=== PATIENT | male | born 1965 | race Caucasian/White ===

== ENCOUNTER 2016-04-12 09:58 | Emergency (ER) | payer OTHER ==
[~2016-04-12] VITALS: Ht 180.3 cm; Wt 70.5 kg
[2016-04-12 10:02] VITALS: BP 154/96; PULSE 81; RESP 20; O2SAT 98
--- NOTE | 2016-04-12 10:14 | ED.REPORT ---
HPI-Dental/Mouth Prob Date of Service Apr 12, 2016 ED Provider: Malachi George MD Pt is a 51 y/o male presenting to the ED due to worsening dental pain onset 2 days ago. The pt broke his tooth while he was in assisted and now c/o front lower dental pain. He c/o asssociated gum swelling around the associated tooth. He denies fever, chills, trouble breathing or swallowing. He has a dentist at [facility] but came here today for pain medications. Nursing Notes Stated Complaint: TOOTH PAIN Chief Complaint: Dental Nursing Notes Reviewed: Yes Allergies: Coded Allergies: Penicillins (Verified Allergy, Intermediate, MOTHER [place], 12/07/15) Scheduled Penicillin V Potassium (Penicillin V Potassium) 500 Mg Tablet 500 MG PO QID Scheduled PRN Ibuprofen (Ibuprofen) 600 Mg Tablet 600 MG PO QID PRN PRN For Pain General Time Seen by MD: 10:08 Chief Complaint Tooth chipped, Tooth pain Hx Obtained From: Patient Arrived By: Walk-in Onset Occurred: 2 days ago Symptom Duration: Since onset Quality: Painful Severity: Current: Moderate Severity: Maximum: Moderate Past Medical History Past Medical History ADHD Hepatitus C Reports: Asthma Past Surgical History Remote Inguinal Hernia Repair Family History non-contributory Smoking History Current Every Day Smoker Social History Drug abuse Meth and Heroin Alcohol Use: 1-3 per day Drug Use: Cocaine, IV drugs, Meth, Other Other Social History: Good social support, Local resident Occupation staying at the [employer] house Ambulatory Status Independent Review of Systems Constitutional: Denies: Chills, Fever Ears / Nose / Throat: Reports: Toothache, Denies: Throat swelling, Tongue swelling Complete sys rev & neg: except as marked. Physical Exam Initial Vital Signs Vital Signs (First) Date Time Temp Pulse Resp B/P Pulse Ox O2 Delivery O2 Flow Rate FiO2 04/12/16 10:02 36.3 81 20 154/96 98 Room Air Initial VS: Reviewed, Vital signs normal Head / Eyes: Atraumatic, Normocephalic, PERRL Respiratory: Breath sounds normal, Clear to auscultation, No respiratory distress Cardiovascular: Regular rate & rhythm, Heart sounds normal, Intact distal pulses Abdomen / GI: Soft, No distention Skin: Warm, Dry, No cyanosis Neurologic: Alert, Oriented, Nonfocal Psychiatric: Mood/affect normal, Behavior normal, Normal thought content ENT: Atraumatic, Airway patent, Mucous membranes moist, Pharynx NL, No peritonsillar abscess, No pooling of secretions, No trismus Fracture of tooth number 24. Surrounding swelling and mild erythema. No purulent discharge or evidence of dental abcess. No swelling of face, jaw, lips, or tongue. Neck: Atraumatic, Supple, No meningismus, Full range of motion, No adenopathy General/Constitutional: Awake, Alert, No acute distress, Cooperative, Not toxic appearing Appearance / Presentation: Positive: Uncomfortable Re-Eval/Medical Decision Med Decision/Clinical Course In summary, the patient is a 51-year-old male who presents with dental pain. Dental examination notable as above for fractured tooth. There is some mild surrounding erythema though no obvious abscess amenable to drainage. Considered other possible causes of dental pain including periapical abscess, gingivitis, Mathew's angina, sinusitis, and molar impaction but these are unlikely based on the history and exam. Discussed with the patient the low cost clinic resources available and she will go directly to [facility] on discharge. Also reviewed precautions for return to the ED and the importance of f/u with a dentist, which he agreed to do. She received 1 tablet [place] and Toradol for pain. Prescribed 7 days of penicillin and he will take ibuprofen/ apply ice packs. Re-Evaluation/Progress : Time of Eval: 10:19 Re-Evaluation/Progress Note: Pt rechecked. Informed pt of plan for treatment. Pt understands and agrees with plan for treatment. F/U and RTER warnings given. All questions addressed. Counseled Regarding: Diagnosis, Need for follow-up, When/why to return to ED Discharge & Departure Primary Impression: Tooth fracture Encounter type: initial encounter Fracture type: closed Qualified Code: S02.5XXA - Fracture of tooth (traumatic), initial encounter for closed fracture Additional Impression: Pain, dental Disposition: Home Discharge Condition All VS Reviewed: Yes Condition: Stable Patient Instructions: Acute dental trauma (ED) Additional Instructions: Thank you for seeking care at emergency room. It is difficult for us to make definitive diagnoses in the ED but we believe that you are experiencing a dental fracture. Our primary goal today in the ED was to evaluate you for any life-threatening conditions. Your evaluation was reassuring. You will be discharged with a prescription for Penicillin and Ibuprofen. Take these as directed. Get to a dentist as soon as possible. You should follow-up with your primary doctor in the next week. You should return to the ED immediately if you develop fevers, vomiting, trouble breathing or swallowing, facial or tongue swelling, or any other concerning signs or symptoms. Thank you for letting us partake in your care today. Referrals: Ish Manzano MD (PCP) Scribe Attestation Portions of this note were transcribed by Sheldon Rodas. I, Dr. George personally performed the history, physical exam and medical decision-making; I reviewed and confirmed the accuracy of the information in the transcribed note. Signed by Annemarie Christiansen, 04/12/16 - 1030 copies to: Ish Manzano MD, Beck O MD Apr 12, 2016 10:14 SHELDON RODAS Apr 12, 2016 10:21
[2016-04-12] MEDS ORDERED: PENI500T PO (10:19)
[2016-04-12] MEDS ORDERED: IBUP-1827 PO (10:19)
[2016-04-12] MEDS ORDERED: HYDROcodone-APAP 7.5-325 mg Tablet PO ONE (10:20)
[2016-04-12] MEDS ORDERED: CLIN150C2 PO (10:42)
== END 2016-04-12 10:47 | disposition home or self-care (01) ==
LOC: SED 09:58
DX: S02.5XXA Fracture of tooth (traumatic), initial encounter for closed fracture (principal); X58.XXXA Exposure to other specified factors, initial encounter; Y93.9 Activity, unspecified; Y92.89 Other specified places as the place of occurrence of the external cause; Y99.9 Unspecified external cause status; J45.909 Unspecified asthma, uncomplicated; F17.200 Nicotine dependence, unspecified, uncomplicated; Z88.0 Allergy status to penicillin; Z86.19 Personal history of other infectious and parasitic diseases

== ENCOUNTER 2016-09-07 10:46 | Emergency (ER) | payer OTHER ==
[~2016-09-07] VITALS: Ht 180.3 cm; Wt 70.5 kg
[~2016-09-07 10:46] MED LIST: CLIN150C2 PO; IBUP-1827 PO
[2016-09-07 10:48] VITALS: BP 151/97; PULSE 114; RESP 20; O2SAT 97
--- NOTE | 2016-09-07 10:53 | ED.REPORT ---
HPI-Hand Prob/Inj Date of Service Sep 07, 2016 ED Provider: Dr. Jesse Haider MD Patient is a 51 year old male with a history of ADHD and Hepatitis C who presents to the ED complaining of right thumb pain that began 3-4 weeks ago. He was carving on a doorjamb when the knife slipped and he cut the dorsal aspect of his right thumb. He says it seemed to heal just fine but then over the past few days has noticed increasing redness and swelling and pain. He previously experienced a crush injury to the same thumb years ago that has since healed. Patient is currently expressing concern because the thumb has become increasingly red and swollen. He denies fever, chills, diaphoresis, nausea or vomiting. Nursing Notes Stated Complaint: R THUMB PAIN Chief Complaint: Extremity Trauma Nursing Notes Reviewed: Yes Allergies: Coded Allergies: Penicillins (Verified Allergy, Intermediate, MOTHER STATES, 09/07/16) No Active Prescriptions or Reported Meds General Time Seen by Provider: 10:54 Chief Complaint Finger injury right (Thumb) Hx Obtained From: Patient Arrived By: Walk-in Onset Occurred: More than a week ago... (4 weeks) Context of Onset: Home injury Symptom Duration: Since onset Progression Since Onset: Gradually worsening Caused by: Accidental Location: Right Hand: : Base of thumb Quality: Painful Severity: Current: Mild Severity: Maximum: Mild Associated with: Reports: Painful extremity, Swollen extremity Pertinent Negative: Pt denies other symptoms Recent Healthcare: No recent doctor visit, No recent hospitalization Past Medical History Past Medical History ADHD Hepatitis C Reports: Asthma Past Surgical History Remote Inguinal Hernia Repair Family History non-contributory Smoking History Current Every Day Smoker 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 GI: Denies: Nausea, Vomiting Physical Exam Initial Vital Signs Vital Signs (First) Date Time Temp Pulse Resp B/P Pulse Ox O2 Delivery O2 Flow Rate FiO2 09/07/16 10:48 36.5 114 20 151/97 97 Room Air Initial VS: Reviewed Head / Eyes: Atraumatic, Normocephalic, PERRL Neck: Supple, Non-tender, Full range of motion Extremities: Vascular intact, Neuro intact, No swelling, No tenderness Neurologic: Alert, Oriented, Nonfocal Psychiatric: Mood/affect normal, Behavior normal, Normal thought content Wrist / Hand: Atraumatic, Neurologic intact, Vascular intact Right Thumb: Positive: Swelling present..., Tenderness present... (IP tenderness between finger and the nail ) General/Constitutional: Awake, Alert, No acute distress Skin: Atraumatic, Color NL, Warm, Dry Respiratory / Chest: Atraumatic, No respiratory distress Cardiovascular: Peripheral circulation NL, Pulses = bilaterally Re-Eval/Medical Decision Re-Evaluation/Progress : Time of Eval: 11:03 Re-Evaluation/Progress Note: Bedside ultrasound done by me. No free fluid present in the thumb. No abscess. Patient is rechecked. He is informed of his results and diagnosis. All questions about the intended treatment plan are addressed. He understands and agrees with the plan. Counseled Regarding: Diagnosis, Need for follow-up, When/why to return to ED Discharge & Departure Primary Impression: Cellulitis Site of cellulitis: extremity Site of cellulitis of extremity: finger Laterality: right Qualified Code: L03.011 - Cellulitis of right finger Disposition: Home Discharge Condition All VS Reviewed: Yes Condition: Improved Patient Instructions: Cellulitis (ED) Additional Instructions: Thank you for trusting us with your care this morning. Your emergency department results are reassuring that there is no dangerous cause for concern at this time. Your symptoms are likely due to cellulitis. Take full course of Cephalexin as directed. Take 800 mg of ibuprofen every 8 hours as needed for pain. Use hot packs regularly throughout the day. Schedule a follow up appointment with your primary care physician (name provided below) in the next 2-3 days for a recheck. Please return to the emergency department if you begin to develop any new or worsening conditions including any high fevers, chills, nausea, vomiting, worsening pain. swelling or redness. Referrals: Ish Manzano MD (PCP) Scribe Attestation Portions of this note were transcribed by Aline Merida. I, Dr. Haider personally performed the history, physical exam and medical decision-making; I reviewed and confirmed the accuracy of the information in the transcribed note. Signed by: Annemarie Rutledge, 09/07/16 1105. copies to: Ish Manzano MD, Kirk H MD Sep 07, 2016 10:53 ALINE MERIDA Sep 07, 2016 11:00
[2016-09-07] MEDS ORDERED: oxyCODONE-Acetamin 5-325 mg Tablet PO ONE (11:00)
== END 2016-09-07 11:16 | disposition home or self-care (01) ==
LOC: SED 10:46
DX: L03.011 Cellulitis of right finger (principal); W26.0XXA Contact with knife, initial encounter; Y93.89 Activity, other specified; Y92.019 Unspecified place in single-family (private) house as the place of occurrence of the external cause; Y99.8 Other external cause status; J45.909 Unspecified asthma, uncomplicated; F90.9 Attention-deficit hyperactivity disorder, unspecified type; F17.200 Nicotine dependence, unspecified, uncomplicated; Z88.0 Allergy status to penicillin